=== PATIENT | male | born 1980 | race Caucasian/White ===

== ENCOUNTER 2016-12-03 20:49 | Emergency (ER) | payer BC ==
[~2016-12-03 20:49] MED LIST: AUGMENTIN PO; FIORICET 50-321 EACH PO; FLEXERIL PO; IBUPROFEN PO; NO MEDICATIONS; ZITHROMAX PO
== END 2016-12-03 23:28 | disposition home or self-care (01) ==
LOC: CED 20:49 → CFTX 20:49
DX: S01.432A Puncture wound without foreign body of left cheek and temporomandibular area, initial encounter (principal); W45.8XXA Other foreign body or object entering through skin, initial encounter; Y92.69 Other specified industrial and construction area as the place of occurrence of the external cause; Z79.899 Other long term (current) drug therapy; Z23 Encounter for immunization
CPT/HCPCS: 90471; 90715; 99283